=== PATIENT | female | born 1995 | race American Indian/Alaskan Native ===

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

== ENCOUNTER 2017-08-16 16:41 | Emergency (ER) | payer MEDICAID | END 2017-08-16 16:42 | disposition left against medical advice (07) | LOC: ED 16:41 | DX: Z00.8 Encounter for other general examination (principal); Z53.21 Procedure and treatment not carried out due to patient leaving prior to being seen by health care provider ==